=== PATIENT | female | born 1950 | race Asian ===

== ENCOUNTER → 2017-06-07 | Outpatient (CLI) | payer MEDICARE, OTHER | END | disposition home or self-care (01) | LOC: RADMN 08:58 | PROVIDERS: ATTEND Family Medicine | DX: G31.9 Degenerative disease of nervous system, unspecified (principal); I67.2 Cerebral atherosclerosis; I65.23 Occlusion and stenosis of bilateral carotid arteries; R90.82 White matter disease, unspecified | CPT/HCPCS: 70450 ==

== ENCOUNTER 2017-10-25 10:35 | Inpatient (IN) | payer MEDICARE, OTHER ==
[~2017-10-25] VITALS: Ht 152.4 cm; Wt 55.5 kg
[2017-10-25] MEDS ORDERED: ATEN25TA PO (10:38)
[2017-10-25] MEDS ORDERED: HYDR25TA PO (10:38)
[2017-10-25] MEDS ORDERED: SIMV-259 PO (10:38)
[2017-10-25] MEDS ORDERED: AMOX250C4 PO (10:38)
[2017-10-25 11:28] LABS: BASOPHILS % (AUTO) 1.1 % (0.0-2.0); HEMATOCRIT 43.8 % (36-46); HEMOGLOBIN 15.3 g/dL (12.0-16.0); LYMPHOCYTES # (AUTO) 1.5 K/uL (1.0-4.8); LYMPHOCYTES % (AUTO) 29.6 % (22.0-44.0); MEAN CORPUSCULAR HEMOGLOBIN 29.5 pg (26.0-34.0); MEAN CORPUSCULAR VOLUME 84 fL (80-100); MONOCYTES # (AUTO) 0.3 K/uL (0.1-1.0); NEUTROPHILS # (AUTO) 3.1 K/uL (1.8-7.7); NEUTROPHILS % (AUTO) 59.3 % (40.0-70.0); PLATELET COUNT (AUTO) 294 K/uL (150-450); RED BLOOD CELL COUNT(AUTO) 5.19 MIL/uL (4.00-5.20); RED CELL DISTRIBUTION WIDTH 13.6 % (11.5-14.5)
[2017-10-25 11:35] LABS: ANION GAP 6 mmol/L (8-16); CALCIUM, TOTAL 9.4 mg/dL (8.8-10.5); CARBON DIOXIDE 32 mmol/L (22-29); CHLORIDE 101 mmol/L (98-107); CREATININE 0.71 mg/dL (0.60-1.30); GLOMERULAR FILTR. RATE CALC > 60 mL/min (>60); GLUCOSE,RANDOM 103 mg/dL (70-110); POTASSIUM 3.4 mmol/L (3.5-5.1); SODIUM SERUM 139 mmol/L (136-145); UREA NITROGEN, BLOOD 11 mg/dL (7-18)
[2017-10-25 11:40] LABS: ALANINE AMINOTRANSFERASE 47 U/L (12-78); ALBUMIN 4.5 g/dL (3.4-5.0); ALKALINE PHOSPHATASE 78 U/L (46-116); ASPARTATE AMINOTRANSFERASE 34 U/L (15-37); BILIRUBIN,TOTAL 0.8 mg/dL (0.1-1.0); TOTAL PROTEIN, SERUM 9.5 g/dL (6.4-8.2)
[2017-10-25] MEDS ORDERED: ONDANSETRON HCL 4 MG/2 ML VIAL IVP ONE (11:45)
[2017-10-25] MEDS ORDERED: FAMOTIDINE 10 MG/ML 2 ML VIAL IVP ONE (11:45)
[2017-10-25] MEDS ORDERED: ASPIRIN 325 MG EC TABLET PO ONE (12:15)
[2017-10-25] MEDS ORDERED: NITROGLYCERIN 2% (1 GM=INCH) PACKET TP ONE (12:15)
[2017-10-25] MEDS ORDERED: OxyCODONE HCL/ACETAMINOPHEN 5-325 MG TABLET PO PRN (13:15)
[2017-10-25] MEDS ORDERED: MAGNESIUM HYDROXIDE SUSPENSION 30 ML UDCUP PO PRN (13:15)
[2017-10-25] MEDS ORDERED: ONDANSETRON HCL 4 MG/2 ML VIAL IVP PRN (13:15)
[2017-10-25] MEDS ORDERED: ACETAMINOPHEN 325 MG TABLET PO PRN (13:15)
[2017-10-25] MEDS ORDERED: ALBUTEROL SULFATE 2.5 MG/0.5 ML NEB SOLUTION NEB PRN (13:15)
[2017-10-25] MEDS: PANTOPRAZOLE SODIUM 40 MG DR TABLET PO SCH (13:29)
[2017-10-25] MEDS ORDERED: POTASSIUM CHL 10 MEQ/WATER 50 ML IV PRN (13:30)
[2017-10-25] MEDS ORDERED: POTASSIUM CHLORIDE 20 MEQ ER TABLET PO PRN (13:30)
[2017-10-25] MEDS: ATORVASTATIN CALCIUM 20 MG TABLET PO SCH (14:32)
[2017-10-25 15:54] VITALS: BP 154/87
[2017-10-25] MEDS ORDERED: PNEUMOCOCCAL VACCINE POLYVALENT 0.5 ML VIAL [PPSV23] IM ONE (16:30)
[2017-10-25] MEDS ORDERED: INFLUENZA VIRUS VACCINE QVS 2017-18 (3YR+)/PF 60 MCG/0.5 ML SYRINGE IM ONE (16:45)
[2017-10-25] MEDS: GuaiFENesin/D-METHORPHAN [SUGAR-FREE] 200-20MG/10 ML SYRUP UDCUP PO PRN ×2 (17:28→23:40)
[2017-10-25 20:17] VITALS: BP 122/59
[2017-10-25] MEDS: DOCUSATE SODIUM 100 MG CAPSULE PO SCH (20:32)
[2017-10-26] VITALS (9 sets, daily range): BP systolic 122–168; BP diastolic 57–79
[2017-10-26] MEDS: DOCUSATE SODIUM 100 MG CAPSULE PO SCH ×2 (09:00→19:43)
[2017-10-26] MEDS ORDERED: REGADENOSON 0.4 MG/5 ML PF SYRINGE IVP ONE ×2 (10:29→15:49)
[2017-10-26] MEDS ORDERED: SESTAMIBI TC99M/UD ISOTOPE 1 EA INJ INJ ONE ×2 (10:30→13:20)
[2017-10-26] MEDS: PANTOPRAZOLE SODIUM 40 MG DR TABLET PO SCH (11:38)
[2017-10-26] MEDS: ASPIRIN 81 MG CHEWABLE TABLET PO SCH (11:39)
[2017-10-26] MEDS: ATORVASTATIN CALCIUM 20 MG TABLET PO SCH (11:39)
[2017-10-26] MEDS: GuaiFENesin/D-METHORPHAN [SUGAR-FREE] 200-20MG/10 ML SYRUP UDCUP PO PRN ×2 (16:29→23:26)
[2017-10-27 00:18] VITALS: BP 146/60
[2017-10-27] MEDS ORDERED: INFLUENZA VIRUS VACCINE QVS 2017-18 (3YR+)/PF 60 MCG/0.5 ML SYRINGE IM ONE (03:45)
[2017-10-27 05:39] VITALS: BP 144/69
[2017-10-27 07:29] VITALS: BP 146/65
[2017-10-27 07:50] VITALS: BP 139/74
[2017-10-27] MEDS: ATORVASTATIN CALCIUM 20 MG TABLET PO SCH (08:14)
[2017-10-27] MEDS: DOCUSATE SODIUM 100 MG CAPSULE PO SCH (08:14)
[2017-10-27] MEDS: ASPIRIN 81 MG CHEWABLE TABLET PO SCH (08:14)
[2017-10-27] MEDS: PANTOPRAZOLE SODIUM 40 MG DR TABLET PO SCH (08:14)
[2017-10-27] MEDS: REGADENOSON 0.4 MG/5 ML PF SYRINGE IVP ONE (08:30)
[2017-10-27] MEDS: AMINOPHYLLINE 25 MG/ML 10 ML VIAL IVP ONE ×3 (08:33→08:43)
[2017-10-27 08:43] VITALS: BP 125/71
[2017-10-27 11:23] VITALS: BP 146/69
[2017-10-27] MEDS ORDERED: METO25XL PO (13:54)
[2017-10-27] MEDS ORDERED: ASPI-1182 PO (13:55)
[2017-10-27] MEDS ORDERED: ATOR40TA28 PO (13:56)
== END 2017-10-27 15:50 | disposition home or self-care (01) | DRG 313 ==
LOC: EMS 10:36 → 5N 14:53
PROVIDERS: ADMIT Internal Medicine; ATTEND Internal Medicine
DX: R07.89 Other chest pain (principal); E78.00 Pure hypercholesterolemia, unspecified; E78.5 Hyperlipidemia, unspecified; I10 Essential (primary) hypertension; J40 Bronchitis, not specified as acute or chronic; Z90.710 Acquired absence of both cervix and uterus; Z28.21 Immunization not carried out because of patient refusal
CPT/HCPCS: 78452; 84132; 90471; 93005; 93017; 93306; 96374; 96375; 99285; A9500; J2405; J2785; J3490

== ENCOUNTER → 2025-06-17 | Outpatient (CLI) | payer MEDICARE, OTHER ==
[~2025-06-17] MED LIST: ASPI-1444 PO; ATOR40TA28 PO; METO25XL PO
[2025-06-17 09:48] LABS: PLATELET COUNT (AUTO) 294 K/uL (150-450); RED BLOOD CELL COUNT(AUTO) 4.81 MIL/uL (4.00-5.20); RED CELL DISTRIBUTION WIDTH 14.0 % (11.5-14.5); WHITE BLOOD COUNT (AUTO) 5.2 K/uL (4.5-11.0)
[2025-06-17 09:54] LABS: ASPARTATE AMINOTRANSFERASE 28 U/L (15-37); CALCIUM, TOTAL 8.9 mg/dL (8.8-10.5); CHOL/HDL RATIO 2.7 (3.9-5.7); CREATININE 0.71 mg/dL (0.60-1.30); GLOMERULAR FILTR. RATE CALC > 60 mL/min (>60); GLUCOSE,RANDOM 120 mg/dL (70-110); LDL CHOL (CALC.) 66 mg/dL (0-130); SODIUM SERUM 141 mmol/L (136-145); TOTAL PROTEIN, SERUM 7.9 g/dL (6.4-8.2); UREA NITROGEN, BLOOD 14 mg/dL (7-18)
== END | disposition home or self-care (01) ==
LOC: LABMN 08:57
PROVIDERS: ATTEND Family Medicine
DX: I11.0 Hypertensive heart disease with heart failure (principal); I50.9 Heart failure, unspecified; E78.5 Hyperlipidemia, unspecified; E11.65 Type 2 diabetes mellitus with hyperglycemia; M12.1 Kaschin-Beck disease; M10.9 Gout, unspecified; D64.9 Anemia, unspecified; I25.10 Atherosclerotic heart disease of native coronary artery without angina pectoris; R51.9 Headache, unspecified; R42 Dizziness and giddiness; R55 Syncope and collapse; R53.1 Weakness; R06.02 Shortness of breath; E66.9 Obesity, unspecified; W19.XXXA Unspecified fall, initial encounter
CPT/HCPCS: 80053; 80061; 83036; 85025